=== PATIENT | male | born 1965 | race Caucasian/White ===

== ENCOUNTER 2018-11-15 12:15 | Emergency (ER) | payer MEDICAID ==
[~2018-11-15] VITALS: Ht 157.5 cm; Wt 65.7 kg
[~2018-11-15 12:15] MED LIST: ACET500C5 PO; DOXY-214 PO
[2018-11-15 12:23] VITALS: BP 156/71; PULSE 70; RESP 16; Ht 157.5 cm; Wt 65.7 kg
== END 2018-11-15 14:05 | disposition home or self-care (01) ==
LOC: E/R 12:15
DX: S00.81XA Abrasion of other part of head, initial encounter (principal); F17.210 Nicotine dependence, cigarettes, uncomplicated; R93.0 Abnormal findings on diagnostic imaging of skull and head, not elsewhere classified; W01.0XXA Fall on same level from slipping, tripping and stumbling without subsequent striking against object, initial encounter; Y92.812 Truck as the place of occurrence of the external cause
CPT/HCPCS: 70450; Z7502